=== PATIENT | male | born 1935 | race Caucasian/White ===

== ENCOUNTER 2016-06-06 12:35 | Emergency (ER) | payer OTHER ==
[~2016-06-06] VITALS: Ht 180.3 cm; Wt 100.7 kg
[2016-06-06 12:53] VITALS: BP 123/76
[2016-06-06 13:07] LABS: ABSOLUTE BASOPHIL COUNT 0 /CUMM (0.0-0.2); ABSOLUTE EOSINOPHIL COUNT 0.3 /CUMM (0.0-0.7); ABSOLUTE GRANULOCYTE CT 9.2 /CUMM (1.4-6.5); ABSOLUTE MONOCYTE COUNT 1.2 /CUMM (0.10-0.60); BASOPHIL % 0.3 % (0.0-2.0); GRANULOCYTE % 72.3 % (42.2-75.2); HEMATOCRIT 41.7 % (42-52); MEAN CORPUSCULAR HGB 31.3 PG (27.0-31.0); MEAN CORPUSCULAR HGB CONC 33.8 G/DL (33.0-37.0); MEAN CORPUSCULAR VOLUME 92.6 FL (80.0-94.0); MEAN PLATELET VOLUME 7.3 FL (7.4-10.4); PLATELET COUNT 357 /CUMM (130-400); RBC DISTRIBUTION WIDTH 14.4 % (11.5-14.5); WHITE BLOOD CELL COUNT 12.8 /CUMM (4.8-10.8)
--- NOTE | 2016-06-06 13:53 | RADIOLOGY REPORT ---
EXAMINATION: XR PORTABLE CHEST CLINICAL INFORMATION: Atrial fibrillation. COMPARISON: None TECHNIQUE: Portable AP view of the chest was obtained. FINDINGS: Cardiac leads overlie the chest. Low lung volumes. No dense consolidation, edema, or effusion. No pneumothorax. The cardiomediastinal silhouette is normal in size with a calcified aorta. Degenerative changes are seen at both shoulders. IMPRESSION: No acute pulmonary findings.
--- NOTE | 2016-06-06 14:00 | ED CARDIAC/CP/PALPITATIONS ---
History of Present Illness General Chief Complaint: General Adult Stated Complaint: SENT FOR AFIB NEW ONSET Source: patient Exam Limitations: no limitations Vital Signs & Intake/Output Vital Signs & Intake/Output Vital Signs Date Time Temp Pulse Resp B/P Pulse O2 O2 Flow FiO2 Ox Delivery Rate 06/06 1253 97.7 74 18 123/76 94 Room Air Allergies Coded Allergies: Penicillins (RASH 06/06/16) Sulfa (Sulfonamide Antibiotics) (RASH 06/06/16) Reconcile Medications Allopurinol 100 MG TABLET 1 TAB PO DAILY GOUT (Reported) Amlodipine Besylate 10 MG TABLET 1 TAB PO DAILY HEART (Reported) Atorvastatin Calcium 80 MG TABLET 0.5 TAB PO DAILY CHOLESTEROL (Reported) Clopidogrel Bisulfate (Clopidogrel) 75 MG TABLET 1 TAB PO DAILY ACS Furosemide 20 MG TABLET 1 TAB PO DAILY WATER RETENTION (Reported) Glimepiride 2 MG TABLET 1 TAB PO DAILY DM (Reported) Heparin (Heparin-1/2NS 25,000 Units/500) 25,000 UNIT/500 ML (50 UNIT/ML) IV.SOLN 25,000 UNITS IV Q24 ACS, AFIB Lisinopril 40 MG TABLET 1 TAB PO DAILY HEART (Reported) Metformin HCl 1,000 MG TABLET 1 TAB PO BID DM (Reported) Metoprolol Tartrate 25 MG TABLET 1 TAB PO BID HEART (Reported) Omeprazole 20 MG CAPSULE. 1 CAP PO DAILY GI (Reported) Triage Note: PT SENT IN BY PCP. PT STATES HE WENT TO SEE DR. SILVERMAN FOR C/O INDIGESTION AND STATES THEY DID AN EKG AND SENT HIM TO ED. PT NEW ONSET A-FIB CONTROLED RATE OF 77 IN TRIAGE. PT DENIES CHEST PAIN OR SOB. Triage Nurses Notes Reviewed? yes HPI: This patient is an 81-year-old male with a past medical history including hypertension and diabetes who presented to the emergency department today accompanied by his sent in by his primary care physician for evaluation of atrial fibrillation. This patient has no prior diagnosis of atrial fibrillation. The patient reported that over the last week he has been feeling bloated. He reported that he has been, "burping a lot." He also reported that sometimes when he burps a lot he feels a tightness in his upper abdomen. The patient denied any chest pain or difficulty breathing. He did report some swelling in his lower extremities. He is on a water pill, but has no diagnosis of CHF. He reported that once a year his primary care physician makes him go see a [id number] programmer, but he cannot remember the name of the [id number] programmer. The patient denied any headache, visual changes, jaw pain, arm pain, numbness or tingling in his extremities, abdominal pain, nausea, or vomiting. (GLENN TYSON PA-C) Past History Travel History Traveled to [place] past 21 day No Medical History Any Pertinent Medical History? see below for history Cardiovascular: hypertension Endocrine: diabetes Surgical History Surgical History: CAROTID ENDARTERECTOMY Psychosocial History What is your primary language Hebrew Tobacco Use: Quit >30 days ago ETOH Use: denies use Illicit Drug Use: denies illicit drug use Family History Hx Contributory? No (GLENN TYSON PA-C) Review of Systems Review of Systems Constitutional: Reports: no symptoms. EENTM: Reports: no symptoms. Respiratory: Reports: no symptoms. Cardiovascular: Reports: no symptoms. GI: Reports: see HPI. Genitourinary: Reports: no symptoms. Musculoskeletal: Reports: no symptoms. Skin: Reports: no symptoms. Neurological/Psychological: Reports: no symptoms. All Other Systems: Reviewed and Negative (GLENN TYSON PA-C) Physical Exam Physical Exam Cardiovascular: IRREGULARLY IRREGULAR WITH NO MURMURS, RUBS, OR GALLOPS. nO jvd. nO CAROTID BRUITS Comments: Well-developed well-nourished person in no acute distress HEENT: Normal EENT exam, head normocephalic, moist mucous membranes PERRLA bilaterally Neck: Supple, no lymphadenopathy Back: Normal inspection Respiratory: No respiratory distress. Chest nontender. Speaking in full sentences. Lungs clear to auscultation bilaterally with no wheezes, rales, rhonchi Abdomen: Soft with mild distention. Nonrigid. Tympanic to percussion. Hypoactive bowel sounds. No organomegaly. Nontender to palpation. No peritoneal signs. No rebound or guarding Extremity: Normal and equal pulses. Neuro: Alert oriented x3, cranial nerves II through XII grossly intact. Skin: No appreciable rash on exposed skin, skin is warm and dry. Psych: Mood and affect is normal Core Measures ACS in differential dx? Yes Severe Sepsis Present: No Septic Shock Present: No (GLENN TYSON PA-C) Progress Differential Diagnosis: AMI, aortic dissection, atrial fibrillation, cholecystitis, CHF/pulm edema, costochondritis, hyperthyroid, musculoskeletal pain, myocarditis, pancreatitis, pericarditis, pneumonia, pneumothorax, PSVT, pulmonary embolism, PVCs/PACs, unstable angina, SMALL BOWEL OBSTRUCTION Plan of Care: Orders Procedure Date/time Status ECHOCARDIOGRAM 06/06 1445 Active Add-on Test (ER Only) 06/06 1411 Active Add-on Test (ER Only) 06/06 1336 Active TYPE & SCREEN (NOT X-MATCH) 06/06 1336 Active LIPASE 06/06 1256 Complete DIRECT BILIRUBIN 06/06 1256 Complete AMYLASE 06/06 1256 Complete TROPONIN LEVEL 06/06 1254 Complete MAGNESIUM 06/06 1254 Complete COMPREHENSIVE METABOLIC PANEL 06/06 1254 Complete CHOLESTEROL 06/06 1254 Complete CBC WITHOUT DIFFERENTIAL 06/06 1254 Complete PARTIAL THROMBOPLASTIN TIME 06/06 1250 Complete PROTHROMBIN TIME 06/06 1250 Complete EKG 06/06 1242 Active Laboratory Tests 06/06/16 1336: PT Cancelled, INR Cancelled, APTT Cancelled 06/06/16 1256: Anion Gap 15, Estimated GFR > 60, BUN/Creatinine Ratio 10.0, Glucose 236 H, Calcium 10.8 H, Magnesium 1.5 L, Total Bilirubin 0.8, Direct Bilirubin 0.3, AST 42, ALT 55, Alkaline Phosphatase 79, Troponin I 3.05 *H, Total Protein 6.5, Albumin 3.9, Globulin 2.6, Albumin/Globulin Ratio 1.5, Cholesterol 105, Amylase 34, Lipase 142, CBC w Diff NO MAN DIFF REQ, RBC 4.50 L, MCV 92.6, MCH 31.3 H, RDW 14.4, MPV 7.3 L, Gran % 72.3, Lymphocytes % 16.0 L, Monocytes % 9.4 H, Eosinophils % 2.0, Basophils % 0.3, Absolute Granulocytes 9.2 H, Absolute Lymphocytes 2.0, Absolute Monocytes 1.2 H, Absolute Eosinophils 0.3, Absolute Basophils 0, PUBS MCHC 33.8 06/06/16 1250: PT 12.0, INR 1.14, APTT 30 Diagnostic Imaging: Viewed by Me: Radiology Read. Discussed w/RAD: Radiology Read. Radiology Impression: PATIENT: TRENA WHIPPLE PRESENT AGE: 81 PATIENT ACCOUNT NO: [id number] : 36 LOCATION: [facility] ORDERING PHYSICIAN: GLENN TYSON PA-C SERVICE DATE: 06/06/16-1253 EXAM TYPE: RAD - XRY-PORTABLE CHEST XRAY EXAMINATION: XR PORTABLE CHEST CLINICAL INFORMATION: Atrial fibrillation. COMPARISON: None TECHNIQUE: Portable AP view of the chest was obtained. FINDINGS: Cardiac leads overlie the chest. Low lung volumes. No dense consolidation, edema, or effusion. No pneumothorax. The cardiomediastinal silhouette is normal in size with a calcified aorta. Degenerative changes are seen at both shoulders. IMPRESSION: No acute pulmonary findings. DICTATED BY: LELA WINN MD DATE/TIME DICTATED:06/06/161347 CARTON WRAPPER:JENNIFER DATE/TIME TRANSCRIBED:06/06/161347 CONFIDENTIAL, DO NOT COPY WITHOUT APPROPRIATE AUTHORIZATION. <Electronically signed in Other Vendor System> SIGNED BY: PA PORTER,LELA 06/06/16 8190 Initial ED EKG: AFIB, ST depression, 84 BPM, st DEPRESSIONS IN LEADS v2, V3, V4, V5, V6 Comments: 06/06/2016 2:06:50 PM: I spoke to the on-call as400 programmer, Dr. Ojeda. Discussed with him this patient's elevated troponin of 3.05 and new onset atrial fibrillation diagnosed today. He will be at the patient's bedside to evaluate this patient. Dr. DE JESUS was also at the patient's bedside from a space evaluation. The patient is stating that he does not want to stay here in the emergency department. He stated, "I will come back tomorrow, but I am not staying here." 06/06/2016 2:29:23 PM: Dr. Ojeda is currently at the patient's bedside for [id number] evaluation 06/06/2016 4:06:44 PM: Dr. Ojeda ordered a stat echocardiogram. The patient agreed to stay for the echocardiogram. However, after this was finished, the patient's caught him in the wheelchair and was feeling him out of the emergency department. I tried to explain to them the importance of staying in the emergency department for further workup and admission as he has a positive troponin and new onset atrial fibrillation. The patient is adamantly refusing to stay. I counseled the patient extensively on the risks of leaving in his condition. He reported that he understands and stated, "I will be back tomorrow , but I am not staying here tonight." (GLENN TYSON PA-C) Departure Departure Disposition: STILL A PATIENT Condition: Stable Clinical Impression Primary Impression: Elevated troponin Secondary Impressions: Atrial fibrillation, new onset Referrals: REENA PORTER,ALYSIA Ragsdale (PCP/Family) Departure Forms: Customer Survey General Discharge Information (GLENN TYSON PA-C) PA/INSTRUCTIONAL WRITER Co-Sign Statement Statement: ED Attending supervision documentation- x I saw and evaluated the patient. I have also reviewed all the pertinent lab results and diagnostic results. I agree with the findings and the plan of care as documented in the PA's/INSTRUCTIONAL WRITER's documentation. [] I have reviewed the ED Record and agree with the PA's/INSTRUCTIONAL WRITER's documentation. [] Additions or exceptions (if any) to the PAs/INSTRUCTIONAL WRITER's note and plan are summarized below: [] (LIZA PORTER,LI) Critical Care Note Critical Care Note Critical Care Time: 30-74 min (GLENN TYSON PA-C)
[2016-06-06 14:26] LABS: PTT 30 SEC (25-37)
--- NOTE | 2016-06-06 18:59 | ECHOCARDIOGRAM REPORT ---
TRENA WHIPPLE Age: 81 : 1935 Gender: M Exam Date: 06/06/2016 15:28 Exam Location: ER Ht (in): 71 Wt (lb): 222 BSA: 2.27 BP: / Ordering Physician: IVELISSE OJEDA MD Referring Physician: Ibeth OJEDA Technologist: Sierra Oquendo RDCS Room Number: ER#5 Indications: AFIB/FLUTTER Rhythm: Atrial fibrillation Technical Quality: Fair FINDINGS Left Ventricle Normal size left ventricle. Mild concentric left ventricular hypertrophy. Overall left ventricular systolic function is lower limits of normal at 50-60%. There is hypokinesis to akinesis of the distal septum and apex noted. Right Ventricle The right ventricle is normal in size and function. Right Atrium The right atrium is normal in size. Left Atrium Mild left atrial dilatation. Mitral Valve Mild thickening/calcification of the mitral valve leaflets. Mild mitral annular calcification. Mild mitral regurgitation. Aortic Valve Diffuse thickening (sclerosis) of the aortic valve cusps without reduced excursion. . No aortic stenosis. Mild aortic regurgitation. Tricuspid Valve The tricuspid valve is normal in structure and function. There is trace to mild tricuspid regurgitation. Pulmonary artery systolic pressure is normal. Pulmonic Valve Structurally normal pulmonic valve. There is no pulmonic regurgitation. Pericardium Normal pericardium without effusion. No pleural effusion. Great Vessels The aortic root is upper limits of normal in diameter and 3.6 cm. The ascending aorta is 3.3 cm in diameter. CONCLUSIONS Mild concentric left ventricular hypertrophy. Overall left ventricular systolic function is lower limits of normal at 50-60%. There is hypokinesis to akinesis of the distal septum and apex noted. Mild left atrial dilatation. Mild thickening/calcification of the mitral valve leaflets. Mild mitral annular calcification. Mild mitral regurgitation. Diffuse thickening (sclerosis) of the aortic valve cusps without reduced excursion. No aortic stenosis. Mild aortic regurgitation. Pulmonary artery systolic pressure is normal. Ivelisse Ojeda M.D. (Electronically Signed) Final Date: 06 June 2016 18:59 MEASUREMENTS (Male / Female) Normal Values 2D ECHO LV Diastolic Diameter PLAX 4.3 cm 4.2 - 5.9 / 3.9 - 5.3 cm LV Systolic Diameter PLAX 2.6 cm 2.1 - 4.0 cm LV Fractional Shortening PLAX 39.5 % 25 - 46 % LV Ejection Fraction 2D Teich 70.4 % IVS Diastolic Thickness 1.2 cm LVPW Diastolic Thickness 1.2 cm LV Relative Wall Thickness 0.6 RV Internal Dim ED PLAX 3.6 cm 1.9 - 3.8 cm LVOT Diameter 1.9 cm Aortic Root Diameter 3.6 cm LA Systolic Diameter LX 3.6 cm 3.0 - 4.0 / 2.7 - 3.8 cm LA Volume 67.0 cm 18 - 58 / 22 - 52 cm Ascending Aorta Diameter 3.3 cm DOPPLER AV Peak Velocity 127.0 cm/s AV Peak Gradient 6.5 mmHg AV Mean Velocity 80.0 cm/s AV Mean Gradient 3.0 mmHg AV Velocity Time Integral 26.2 cm LVOT Peak Velocity 98.5 cm/s LVOT Peak Gradient 3.9 mmHg LVOT Mean Velocity 63.3 cm/s LVOT Mean Gradient 2.0 mmHg LVOT Velocity Time Integral 16.7 cm LVOT Stroke Volume 47.3 cm AV Area Cont Eq vti 1.8 cm AV Area Cont Eq pk 2.2 cm MV Peak Velocity 71.5 cm/s MV Peak Gradient 2.0 mmHg MV Mean Velocity 51.5 cm/s MV Mean Gradient 1.0 mmHg Mitral E Point Velocity 80.5 cm/s Mitral A Point Velocity 70.8 cm/s Mitral E to A Ratio 1.1 MV PHT Velocity 72.1 cm/s MV Deceleration [place] 166.0 cm/s MV Pressure Half Time 130.3 ms MV Area PHT 1.7 cm MV Deceleration Time 114.0 ms TR Peak Velocity 253.0 cm/s TR Peak Gradient 25.6 mmHg Right Atrial Pressure 5.0 mmHg Pulmonary Artery Systolic Pressu 30.6 mmHg Right Ventricular Systolic Press 30.6 mmHg PV Peak Velocity 93.0 cm/s PV Peak Gradient 3.5 mmHg PV Mean Velocity 64.9 cm/s PV Mean Gradient 2.0 mmHg PV Velocity Time Integral 16.0 cm LV E' Lateral Velocity 8.1 cm/s Mitral E to LV E' Lateral Ratio 10.0 LV E' Septal Velocity 7.9 cm/s Mitral E to LV E' Septal Ratio 10.2
--- NOTE | 2016-06-06 19:14 | Cons- Cardiology ---
General Information and HPI Consulting Request Date of Consult: 06/06/16 Requested By: SHELIA Meyer Reason for Consult: New-onset atrial fibrillation and positive troponin. Source of Information: patient, old records Exam Limitations: no limitations History of Present Illness: The patient is an 81-year-old male with underlying hypertension and diabetes. He was seen by Dr. Cristina for a routine office visit today, who found him to be in atrial fibrillation and sent him to the emergency department. The patient was not aware of this. He did not have any palpitations or feelings of irregular pulse. However the patient states that over the past week he has had a distended abdomen and has a lot of eructation. He has had some discomfort in his epigastric area but denies any chest pain or shortness of breath. In the emergency room he was found to be in atrial fibrillation with a normal heart rate with a lot of ST depression on his electrocardiogram. His initial troponin was reported as 3.05 and the patient was advised admission. However the patient consistently refused admission. He did agree to have an echocardiogram, which did show some regional wall motion abnormalities, but directly after the echocardiogram was completed he left AMA from the emergency department. He did say he would "come back tomorrow". Allergies/Medications Allergies: Coded Allergies: Penicillins (RASH 06/06/16) Sulfa (Sulfonamide Antibiotics) (RASH 06/06/16) Home Med List: Allopurinol 100 MG TABLET 1 TAB PO DAILY GOUT (Reported) Amlodipine Besylate 10 MG TABLET 1 TAB PO DAILY HEART (Reported) Atorvastatin Calcium 80 MG TABLET 0.5 TAB PO DAILY CHOLESTEROL (Reported) Clopidogrel Bisulfate (Clopidogrel) 75 MG TABLET 1 TAB PO DAILY ACS Furosemide 20 MG TABLET 1 TAB PO DAILY WATER RETENTION (Reported) Glimepiride 2 MG TABLET 1 TAB PO DAILY DM (Reported) Heparin (Heparin-1/2NS 25,000 Units/500) 25,000 UNIT/500 ML (50 UNIT/ML) IV.SOLN 25,000 UNITS IV Q24 ACS, AFIB Lisinopril 40 MG TABLET 1 TAB PO DAILY HEART (Reported) Metformin HCl 1,000 MG TABLET 1 TAB PO BID DM (Reported) Metoprolol Tartrate 25 MG TABLET 1 TAB PO BID HEART (Reported) Omeprazole 20 MG CAPSULE. 1 CAP PO DAILY GI (Reported) Review of Systems Review of Systems: He has no other complaints in the review of systems at this time. Past History Travel History Traveled to [place] past 21 day No Medical History Cardiovascular: hypertension Endocrine: diabetes Surgical History Surgical History: CAROTID ENDARTERECTOMY Psychosocial History ETOH Use: denies use Illicit Drug Use: denies illicit drug use Exam & Diagnostic Data Vital Signs and I&O Vital Signs Date Time Temp Pulse Resp B/P Pulse O2 O2 Flow FiO2 Ox Delivery Rate 06/06 1253 97.7 74 18 123/76 94 Room Air Intake & Output 06/06 1600 06/06 0800 06/06 0000 06/05 1600 06/05 0800 06/05 0000 Intake Total Output Total Balance Patient 222 lb Weight Physical Exam: On physical he is an overweight elderly man in no acute distress HEENT exam is normal Chest is clear Heart reveals irregular rhythm and no murmurs. The rate is within the normal range. The abdomen is benign Extremities reveal trace edema and good pulses Labs/Darrius Results: Laboratory Tests 06/06 06/06 06/06 1336 1256 1250 Chemistry Sodium (137 - 145 mmol/L) 135 L Potassium (3.5 - 5.1 mmol/L) 4.5 Chloride (98 - 107 mmol/L) 97 L Carbon Dioxide (22 - 30 mmol/L) 23 Anion Gap (5 - 16) 15 BUN (9 - 20 mg/dL) 10 Creatinine (0.7 - 1.2 mg/dL) 1.0 Estimated GFR (>60 ml/min) > 60 BUN/Creatinine Ratio (7 - 25 %) 10.0 Glucose (65 - 99 mg/dL) 236 H Calcium (8.4 - 10.2 mg/dL) 10.8 H Magnesium (1.6 - 2.3 mg/dL) 1.5 L Total Bilirubin (0.2 - 1.3 mg/dL) 0.8 Direct Bilirubin (< 0.4 mg/dL) 0.3 AST (17 - 59 U/L) 42 ALT (21 - 72 U/L) 55 Alkaline Phosphatase (< 127 U/L) 79 Troponin I (<0.11 ng/ml) 3.05 *H Total Protein (6.3 - 8.2 g/dL) 6.5 Albumin (3.5 - 5.0 g/dL) 3.9 Globulin (1.9 - 4.2 gm/dL) 2.6 Albumin/Globulin Ratio (1.1 - 2.2 %) 1.5 Cholesterol (< 200 MG/DL) 105 Amylase (30 - 110 U/L) 34 Lipase (23 - 300 U/L) 142 Coagulation PT (9.4 - 12.5 SEC) Cancelled 12.0 INR (0.90 - 1.17) Cancelled 1.14 APTT (25 - 37 SEC) Cancelled 30 Hematology CBC w Diff NO MAN DIFF REQ WBC (4.8 - 10.8 /CUMM) 12.8 H RBC (4.70 - 6.10 /CUMM) 4.50 L Hgb (14.0 - 18.0 G/DL) 14.1 Hct (42 - 52 %) 41.7 L MCV (80.0 - 94.0 FL) 92.6 MCH (27.0 - 31.0 PG) 31.3 H RDW (11.5 - 14.5 %) 14.4 Plt Count (130 - 400 /CUMM) 357 MPV (7.4 - 10.4 FL) 7.3 L Gran % (42.2 - 75.2 %) 72.3 Lymphocytes % (20.5 - 51.1 %) 16.0 L Monocytes % (1.7 - 9.3 %) 9.4 H Eosinophils % (0 - 5 %) 2.0 Basophils % (0.0 - 2.0 %) 0.3 Absolute Granulocytes (1.4 - 6.5 /CUMM) 9.2 H Absolute Lymphocytes (1.2 - 3.4 /CUMM) 2.0 Absolute Monocytes (0.10 - 0.60 /CUMM) 1.2 H Absolute Eosinophils (0.0 - 0.7 /CUMM) 0.3 Absolute Basophils (0.0 - 0.2 /CUMM) 0 PUBS MCHC (33.0 - 37.0 G/DL) 33.8 Diagnostic Data EKG Results EKG on presentation showed atrial fibrillation rate of 84. There is a PVC seen. 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 There are diffuse ST depressions in the anterolateral leads. A previous EKG from the doctor's office from a year prior showed sinus rhythm. CXR Results PATIENT: TRENA WHIPPLE PRESENT AGE: 81 PATIENT ACCOUNT NO: [id number] : 36 LOCATION: [facility] ORDERING PHYSICIAN: GLENN TYSON PA-C SERVICE DATE: 06/06/16-9316 EXAM TYPE: RAD - XRY-PORTABLE CHEST XRAY EXAMINATION: XR PORTABLE CHEST CLINICAL INFORMATION: Atrial fibrillation. COMPARISON: None TECHNIQUE: Portable AP view of the chest was obtained. FINDINGS: Cardiac leads overlie the chest. Low lung volumes. No dense consolidation, edema, or effusion. No pneumothorax. The cardiomediastinal silhouette is normal in size with a calcified aorta. Degenerative changes are seen at both shoulders. IMPRESSION: No acute pulmonary findings. DICTATED BY: LELA WINN MD DATE/TIME DICTATED:06/06/161347 DIRECTOR OF AVIATION:JENNIFER DATE/TIME TRANSCRIBED:06/06/161347 CONFIDENTIAL, DO NOT COPY WITHOUT APPROPRIATE AUTHORIZATION. <Electronically signed in Other Vendor System> SIGNED BY: PA PORTER,LELA 06/06 7532 Other Results CONCLUSIONS Mild concentric left ventricular hypertrophy. Overall left ventricular systolic function is lower limits of normal at 50-60%. There is hypokinesis to akinesis of the distal septum and apex noted. Mild left atrial dilatation. Mild thickening/calcification of the mitral valve leaflets. Mild mitral annular calcification. Mild mitral regurgitation. Diffuse thickening (sclerosis) of the aortic valve cusps without reduced excursion. No aortic stenosis. Mild aortic regurgitation. Pulmonary artery systolic pressure is normal. Luis Ojeda M.D. (Electronically Signed) Final Date: 06 June 2016 18:59 Assessment/Plan Assessment/Plan This patient presented with an abnormal EKG, elevated troponin, and "new onset" atrial fibrillation. He has some atypical symptoms which could be cardiac in nature consisting of eructation and epigastric discomfort. The symptoms are at least a few days old. He has a abnormal echocardiogram with some wall motion abnormalities suggesting that perhaps he had a myocardial infarction a few days ago by symptoms. The onset of atrial fibrillation however is unknown because he is asymptomatic from this. This patient was urged to stay in the hospital to receive anti-ischemic therapy and anticoagulation for his atrial fibrillation and myocardial infarction. However he adamantly refused to stay in the hospital , although he did say he would possibly come back to the emergency room tomorrow. Multiple efforts were made to convince him to stay but he was competent and signed out AMA. He was urged to either to come back here tomorrow or to follow-up with his own physician. Copies To: REENA PORTER,ALYSIA Ragsdale Consult Acknowledgment - Thank you for your consult request.
[2016-06-07] MEDS ORDERED: ALLOPURINOL100 M1 PO (08:25)
[2016-06-07] MEDS ORDERED: OMEPRAZOLE20 M2 PO (08:25)
[2016-06-07] MEDS ORDERED: METFORMIN HCL1000 M1 PO (08:26)
[2016-06-07] MEDS ORDERED: AMLODIPINE BESY10 M1 PO (08:26)
[2016-06-07] MEDS ORDERED: FUROSEMIDE20 M1 PO (08:28)
[2016-06-07] MEDS ORDERED: ATORVASTATIN CA80 M1 PO (08:28)
[2016-06-07] MEDS ORDERED: GLIMEPIRIDE2 MG PO (08:28)
[2016-06-07] MEDS ORDERED: LISINOPRIL40 M1 PO (08:28)
[2016-06-07] MEDS ORDERED: METOPROLOL TART25 M1 PO (08:29)
[2016-06-07] MEDS ORDERED: CLOPIDOGREL75 M1 PO (13:48)
[2016-06-07] MEDS ORDERED: HEPARIN-1/25000 UNI1 IV (13:52)
== END 2016-06-06 16:13 | disposition left against medical advice (07) ==
LOC: ERH 12:35 → EDBD 12:35 → ERH 12:47
PROVIDERS: Emergency Medicine; Physician Assistant
DX: I48.91 Unspecified atrial fibrillation (principal); R77.8 Other specified abnormalities of plasma proteins
CPT/HCPCS: 93005; 93010; 93306

== ENCOUNTER 2016-06-07 03:56 | Inpatient (IN) | payer OTHER ==
[~2016-06-07] VITALS: Ht 210.8 cm; Wt 100.7 kg
--- NOTE | 2016-06-07 04:05 | NUR ---
PT TO ED C/O FREQUENT BELCHING, ABDOMINAL "BLOATING" AND CHEST PRESSURE FOR AN HOUR. SEEN FOR THE SAME YESTERDAY AFTERNOON AND LEFT AMA, PER SIGNIFICANT OTHER. PT DENIES PAIN ON ARRIVAL TO ED. "WHEN THE PRESUURE IN MY CHEST CAME BACK, I GOT SCARED"
--- NOTE | 2016-06-07 04:15 | NUR ---
PT PLACEWD ON 2L NC, O2 SAT TO 97% PT EVALUATED BY DR BISHOP.
[2016-06-07 05:07] LABS: ABSOLUTE BASOPHIL COUNT 0.1 /CUMM (0.0-0.2); ABSOLUTE EOSINOPHIL COUNT 0.2 /CUMM (0.0-0.7); ABSOLUTE GRANULOCYTE CT 8.4 /CUMM (1.4-6.5); ABSOLUTE LYMPH COUNT 1.3 /CUMM (1.2-3.4); BASOPHIL % 0.5 % (0.0-2.0); EOSINOPHIL % 2.1 % (0-5); GRANULOCYTE % 76.7 % (42.2-75.2); HEMATOCRIT 42.1 % (42-52); MEAN CORPUSCULAR VOLUME 93.8 FL (80.0-94.0); MEAN PLATELET VOLUME 7.9 FL (7.4-10.4); PLATELET COUNT 312 /CUMM (130-400); RBC DISTRIBUTION WIDTH 14.3 % (11.5-14.5); RED BLOOD CELL CT 4.49 /CUMM (4.70-6.10)
--- NOTE | 2016-06-07 05:38 | ED CARDIAC/CP/PALPITATIONS ---
History of Present Illness General Chief Complaint: Chest Pain Stated Complaint: CHEST PAIN Source: patient, old records Exam Limitations: no limitations Vital Signs & Intake/Output Vital Signs & Intake/Output Vital Signs Date Time Temp Pulse Resp B/P B/P Pulse O2 O2 Flow FiO2 Mean Ox Delivery Rate 06/07 0603 97.5 83 18 126/65 95 Nasal 2.0L Cannula 06/07 0415 97 Nasal 2.0L Cannula 06/07 0406 97.2 88 18 123/81 94 Room Air Allergies Coded Allergies: Penicillins (RASH 06/06/16) Sulfa (Sulfonamide Antibiotics) (RASH 06/06/16) Triage Nurses Notes Reviewed? yes HPI: PATIENT PRESENTS FOR EVALUATION OF A LEFT CHEST PRESSURE WITH ASSOCIATED ABDOMINAL DISTENTION AND BELCHING. Patient WAS SEEN EARLIER TODAY IN THE EMERGENCY DEPARTMENT AND WAS TOLD HE SHOULD BE ADMITTED BUT HE REFUSED. He HAD LAB TESTS X-RAY AND ULTRASOUND. Patient STATES THAT WHEN HE GOT BACK HOME HE EXPERIENCED ADDITIONAL LEFT CHEST PRESSURE PROMPTING THEM TO RETURN TO THE EMERGENCY DEPARTMENT. He DENIES CHEST PAIN AT THIS TIME. In FACT HE HAS NO SPECIFIC COMPLAINTS CURRENTLY. Past History Medical History Any Pertinent Medical History? see below for history Cardiovascular: hypertension Endocrine: diabetes Surgical History Surgical History: CAROTID ENDARTERECTOMY Psychosocial History What is your primary language Portuguese Family History Hx Contributory? No Review of Systems Review of Systems Constitutional: Reports: no symptoms. EENTM: Reports: no symptoms. Respiratory: Reports: no symptoms. Cardiovascular: Reports: see HPI. GI: Reports: no symptoms. Genitourinary: Reports: no symptoms. Musculoskeletal: Reports: no symptoms. Skin: Reports: no symptoms. Neurological/Psychological: Reports: no symptoms. Hematologic/Endocrine: Reports: no symptoms. Immunologic/Allergic: Reports: no symptoms. All Other Systems: Reviewed and Negative Physical Exam Physical Exam Cardiovascular: SEE BELOW Comments: Gen.: Well-nourished, well-developed, no acute respiratory distress. Head: Normocephalic, atraumatic. Eyes: Normal inspection bilaterally Ears: Normal inspection bilaterally Nose: Normal inspection Throat/mouth : Moist mucosa Neck: Supple, full range of motion, no goiter Heart: Regular rate and rhythm, no murmurs rubs or gallops Lungs: Clear to auscultation bilaterally with normal air entry Chest: Nontender Back: Normal range of motion Abdomen: Soft, nontender, nondistended, normal bowel sounds Extremities: Normal range of motion grossly, equal radial pulses, no cyanosis clubbing or edema, CALVES NONTENDER Neurologic: Cranial nerves grossly intact, speech is clear Skin: warm and dry Psychiatric: Calm, cooperative, no apparent delusions or hallucinations Core Measures ACS in differential dx? Yes Severe Sepsis Present: No Septic Shock Present: No Progress Differential Diagnosis: AMI, unstable angina Plan of Care: Orders Procedure Date/time Status Admit to inpatient 06/07 625 Active TROPONIN LEVEL 06/08 439 Complete MAGNESIUM 06/08 439 Complete CBC WITHOUT DIFFERENTIAL 06/08 439 Complete BASIC METABOLIC PANEL 06/08 439 Complete EKG 06/07 356 Active Current Medications Sig/Shantal Start time Last Medication Dose Stop Time Status Admin Aspirin 81 MG ONCE ONE 06/07 644 UNVr (Aspirin) 06/07 645 Metoprolol Tartrate 12.5 MG ONCE ONE 06/07 644 UNVr (Lopressor) 06/07 645 Laboratory Tests 06/07/16 0524: Anion Gap 12, Estimated GFR > 60, BUN/Creatinine Ratio 13.0, Glucose 161 H, Calcium 10.0, Magnesium 1.5 L, Troponin I 1.46 *H 06/07/16439: CBC w Diff NO MAN DIFF REQ, RBC 4.49 L, MCV 93.8, MCH 31.0, RDW 14.3, MPV 7.9, Gran % 76.7 H, Lymphocytes % 11.8 L, Monocytes % 8.9, Eosinophils % 2.1, Basophils % 0.5, Absolute Granulocytes 8.4 H, Absolute Lymphocytes 1.3, Absolute Monocytes 1.0 H, Absolute Eosinophils 0.2, Absolute Basophils 0.1, PUBS MCHC 33.0 Initial ED EKG: NSR, rate (90), pvc Prior EKG: changed (a fib on prior) Rhythm Strip: normal sinus rhythm Departure Departure Disposition: STILL A PATIENT Condition: Stable Clinical Impression Primary Impression: Elevated troponin Secondary Impressions: Paroxysmal atrial fibrillation Referrals: ALYSIA VALLES MD (PCP/Family) Departure Forms: Customer Survey General Discharge Information Admission Note Spoke With: ALYSIA VALLES MD Documentation of Exam: Documentation of any treatments & extenuating circumstances including Concerns Regarding Discharge (functional status, medication knowledge or non-compliance, living conditions, etc.) that warrant an admission rather than observation: Patient has an elevated troponin and evidence of paroxysmal atrial fibrillation based on his prior EKG and emergency department visit. It is likely He has suffered a small myocardial infarction. This places him at risk of further dysrhythmias and cardiac arrest. He signed out AGAINST MEDICAL ADVICE during his last emergency department visit and I feel this makes him a poor candidate for outpatient management as it is not clear if he would comply with outpatient treatment. I feel he now requires hospitalization for continuous cardiac monitoring, serial troponin determinations, serial EKGs and cardiology consultation. This patient's medications should be optimized and stress test and/or cardiac catheterization should be considered. I feel he will require a multiple day hospitalization. Critical Care Note Critical Care Note Critical Care Time: non-applicable
--- NOTE | 2016-06-07 06:02 | NUR ---
PT BELCHING FREQUENTLY. REMAINS PAIN FREE
--- NOTE | 2016-06-07 06:26 | NUR ---
CRITICAL TEST RESULTS [id number] TRENA WHIPPLE 81 M TESTS AND RESULTS: TROP 1.46 Results received and read back by: SARAY NORMAN Results received date and time: 06/07/16 0627 The following provider was notified of the results, and read the results back: DR BISHOP Notified date and time: 06/07/16 at 0605
--- NOTE | 2016-06-07 06:58 | NUR ---
PT MEDICATED WITH ASPIRIN 81MG PO AND LOPRESSOR 12.5MG PO PER EMAR.
--- NOTE | 2016-06-07 07:37 | History & Physical ---
MAGO LIANG 06/07/16 0736: General Information and HPI MD Statement: I have seen and personally examined TRENA WHIPPLE and documented this H&P. The patient is a 81 year old M who presented with a patient stated chief complaint of [Chest pain]. Source of Information: patient, old records Exam Limitations: no limitations History of Present Illness: is an 81 yo man with PMHx. significant for HTN, DM, HLD, OA, Rt. Carotid endarterctomy about 10 years ago presented to ED with a c/o of chest pain. Patient was at our ED yesterday for the same complaint, he was seen by his PCP yesterday, EKG at PCP office showed st-depression and he was advised to come to ED for more evaluation, he states that his chest pain started last week, worst was at last sunday, pressure in nature, mainly on the left side of the chest last for about 20 minutes, no radiation, no nausea, vomiting, diaphoresis, dizziness, heart racing and there is no change in urinary or bowel habits. He report that his symptoms started as indigestion, he was berbing alot, his states that they tries multiple meds, for gas including tums but his symptoms didn't resolved. Yesterday at our ED, his troponin was: 3.05, EKG showed st-t wave changes, echocardiogram was done yesterday which showed wall motion abnormality, he was seen by , the plan was to admitt him and treat him for ACS and new onset A.fib BUT he refused to stay and left AMA. Unfortunately he again started to have the chest prssure at 2:30 am and he decided to come back to our ED for more evaluation. Allergies/Medications Allergies: Coded Allergies: Penicillins (RASH 06/06/16) Sulfa (Sulfonamide Antibiotics) (RASH 06/06/16) Home Med list Allopurinol 100 MG TABLET 1 TAB PO DAILY GOUT (Reported) Amlodipine Besylate 10 MG TABLET 1 TAB PO DAILY HEART (Reported) Atorvastatin Calcium 80 MG TABLET 0.5 TAB PO DAILY CHOLESTEROL (Reported) Furosemide 20 MG TABLET 1 TAB PO DAILY WATER RETENTION (Reported) Glimepiride 2 MG TABLET 1 TAB PO DAILY DM (Reported) Lisinopril 40 MG TABLET 1 TAB PO DAILY HEART (Reported) Metformin HCl 1,000 MG TABLET 1 TAB PO BID DM (Reported) Metoprolol Tartrate 25 MG TABLET 1 TAB PO BID HEART (Reported) Omeprazole 20 MG CAPSULE. 1 CAP PO DAILY GI (Reported) Past History Travel History Traveled to [place] past 21 day No Medical History Neurological: TIA Cardiovascular: hypertension, PVC'S Gastrointestinal: GERD Musculoskeletal: osteoarthritis Endocrine: diabetes Surgical History Surgical History: CAROTID ENDARTERECTOMY Past Family/Social History Family History Relations & Conditions if any MOTHER FH: cancer FATHER FH: heart attack Psychosocial History Smoking Status: Former Smoker (40 years ago) ETOH Use: denies use (stopped 6 years ago) Illicit Drug Use: denies illicit drug use Employment History Employment Retired Profession/Employer steal iron Review of Systems Review of Systems Constitutional: Reports: no symptoms. Cardiovascular: Reports: chest pain, peripheral edema. Denies: palpitations, syncope. Respiratory: Denies: cough, short of breath, sputum production. GI: Reports: bloating. Genitourinary: Reports: no symptoms. Musculoskeletal: Reports: no symptoms. Skin: Reports: no symptoms. Neurological/Psychological: Reports: no symptoms. Exam & Diagnostic Data Last 24 Hrs of Vital Signs/I&O Vital Signs Date Time Temp Pulse Resp B/P B/P Pulse O2 O2 Flow FiO2 Mean Ox Delivery Rate 06/07 0830 97.8 85 16 108/66 95 Nasal 2.0L Cannula 06/07 0657 83 18 111/67 06/07 0657 83 18 111/67 95 Nasal 2.0L Cannula 06/07 0603 97.5 83 18 126/65 95 Nasal 2.0L Cannula 06/07 0415 97 Nasal 2.0L Cannula 06/07 0406 97.2 88 18 123/81 94 Room Air Intake & Output 06/07 1600 06/07 0800 06/07 0000 Intake Total 0 Output Total Balance 0 Intake, Oral 0 Patient 222 lb Weight Weight Reported by Patient Measurement Method Physical Exam General Appearance Alert, Oriented X3, Cooperative, No Acute Distress Skin No Rashes, No Breakdown, No Significant Lesion HEENT Atraumatic, PERRLA, EOMI, Mucous Membr. moist/pink Neck Supple, No JVD Lymphatic Axillary nl, Cervical nl Cardiovascular Normal S1, Normal S2 Lungs Clear to Auscultation, Normal Air Movement Abdomen Normal Bowel Sounds, Soft, No Tenderness Extremities +2 edema Vascular Normal Pulses, Pulses Symmetrical Last 24 Hrs of Labs/Darrius: Laboratory Tests 06/07/16 0524: Anion Gap 12, Estimated GFR > 60, BUN/Creatinine Ratio 13.0, Glucose 161 H, Calcium 10.0, Magnesium 1.5 L, Troponin I 1.46 *H 06/07/16 0440: CBC w Diff NO MAN DIFF REQ, RBC 4.49 L, MCV 93.8, MCH 31.0, RDW 14.3, MPV 7.9, Gran % 76.7 H, Lymphocytes % 11.8 L, Monocytes % 8.9, Eosinophils % 2.1, Basophils % 0.5, Absolute Granulocytes 8.4 H, Absolute Lymphocytes 1.3, Absolute Monocytes 1.0 H, Absolute Eosinophils 0.2, Absolute Basophils 0.1, PUBS MCHC 33.0 Diagnostic Data EKG Results A.fib T-wave inversion at III, AFV ST -depression at anterolateral lead (V3....>V6) CXR Results IMPRESSION: No acute pulmonary findings. Other Results Echo at 06/06/2016: CONCLUSIONS Mild concentric left ventricular hypertrophy. Overall left ventricular systolic function is lower limits of normal at 50-60%. There is hypokinesis to akinesis of the distal septum and apex noted. Mild left atrial dilatation. Mild thickening/calcification of the mitral valve leaflets. Mild mitral annular calcification. Mild mitral regurgitation. Diffuse thickening (sclerosis) of the aortic valve cusps without reduced excursion. No aortic stenosis. Mild aortic regurgitation. Pulmonary artery systolic pressure is normal. Assessment/Plan Assessment: is an 81 yo man with PMHx. significant for HTN, DM, HLD, OA, Rt. Carotid endarterctomy about 10 years ago presented to ED with a c/o of chest pain found to have elevated troponin and EKG changes admitted for ACS. VITALS, EAMINATION AND LABS ABOVE Assessment and plan: #ACS: #New onset A.fib #Hx. of diabetes, HTN, HLD #Hx. of right carotid stenosis s/p enarterecotmy Plan: -Will admitt to telemetery flood -Case discussed with , will start IV heparin -B-jeff and dual antiplatelate started -Lipid panel at am -Will trend troponin and EKG -Cardiac catheterization in 1-2 days -Will hold oral hypoglycemic meds and start insulin sliding scale -Will continue other home meds -Will give one dose of nitroglycerin for vasodilator activity to decrease preload even his chest pain resolved. DVT PPX: HEPARIN FULL CODE As Ranked By This Provider Problem List: 1. Elevated troponin 2. Atrial fibrillation, new onset Core Measures/Miscellaneous Acute Coronary Syndrome ACS Diagnosis: Yes Cerebrovascular Accident CVA/TIA Diagnosis: No Congestive Heart Failure CHF Diagnosis: No Venous Thromboembolism VTE Risk Factors: Acute medical illness, Age > 40 No Mech VTE prophylaxis d/t: No contraindications No VTE Pharm Prophylaxis d/t: No contraindications VTE Diagnosis: No VTE Type: NONE VTE Confirmed by (Test): NONE Severe Sepsis Severe Sepsis Present: No Septic Shock Septic Shock Present: No Miscellaneous Documentation Attending Case Discussed With: REENA PORTER,ALYSIA Ragsdale Primary Care Physician: ALYSIA VALLES MD Patient sees these Specialists - Level of Patient Care: Telemetry MARIAMA IRVIN MD 06/07/16 0943: Attending Review Statement Attending Statement Attending MD Statement: examined this patient, discuss w/resident/PA/SELF PAY COLLECTOR, agreed w/resident/PA/SELF PAY COLLECTOR, discussed with family, reviewed EMR data (avail)
--- NOTE | 2016-06-07 07:42 | NUR ---
HOUSESTAFF IN FOR EVAL
[2016-06-07] MEDS ORDERED: ALLOPURINOL100 M1 PO (08:25)
[2016-06-07] MEDS ORDERED: OMEPRAZOLE20 M2 PO (08:25)
[2016-06-07] MEDS ORDERED: AMLODIPINE BESY10 M1 PO (08:26)
[2016-06-07] MEDS ORDERED: METFORMIN HCL1000 M1 PO (08:26)
[2016-06-07] MEDS ORDERED: LISINOPRIL40 M1 PO (08:28)
[2016-06-07] MEDS ORDERED: ATORVASTATIN CA80 M1 PO (08:28)
[2016-06-07] MEDS ORDERED: FUROSEMIDE20 M1 PO (08:28)
[2016-06-07] MEDS ORDERED: GLIMEPIRIDE2 MG PO (08:28)
[2016-06-07] MEDS ORDERED: METOPROLOL TART25 M1 PO (08:29)
--- NOTE | 2016-06-07 08:30 | NUR ---
AWAITING BED ASSIGNMENT ON . Informed waiting has been performed.
--- NOTE | 2016-06-07 09:00 | NUR ---
HEPARIN DRIP STARTED. PTT ORDERED FOR 1500.
--- NOTE | 2016-06-07 09:13 | NUR ---
PT GOING TO ROOM 181. REPORT TO SUKHJINDER PEREZ ON .
--- NOTE | 2016-06-07 09:13 | NUR ---
DR IRVIN AT BEDSIDE.
--- NOTE | 2016-06-07 09:24 | NUR ---
PT TO FLOOR VIA STRETCHER WITH THIS RN AND TRANSPORT ON MONITOR. ALL PAPERWORK AND BELONGINGS SENT. CLINICAL STATUS UNCHANGED.
--- NOTE | 2016-06-07 09:25 | NUR ---
PT ASSIGNED ROOM 181
--- NOTE | 2016-06-07 09:26 | Admission Certification ---
Admission Certification Certification Statement - As attending physician, I certify that at the time of - admission, based on clinical presentation, severity of - symptoms, need for further diagnostic testing and - therapeutic interventions, and risk of adverse outcomes - without in-hospital treatment, in my clinical assessment, - this patient requires an acute hospital stay for a minimum - of two nights or longer. I have also considered psychsocial - factors such as support system, advanced age, financial - issues, cognitive issues, and failed out-patient treatments, - past re-admission history, safety of patient, and lack of - compliance as applicable. Specific rationale supporting this admission is: NSTEMI
--- NOTE | 2016-06-07 09:44 | PN- Att Addend ---
Attending Addendum Attending Brief Note The patient reports left chest pain resolved General Appearance: Alert, No Acute Distress Skin: Grossly normal HEENT: PEERLA Neck: Supple, No JVD Cardiovascular: Irregular rhythm Lungs: Clear to Auscultation, Normal Air Movement Abdomen: Normal Bowel Sounds, Soft, No Tenderness Neurological: Normal Speech, Strength at 5/5 X4 Ext, Cranial Nerves 3-12 NL, Reflexes 2+ Extremities: Trace pedal edema Vascular: Normal Pulses Assessment 81-year-old with history of hypertension, diabetes, dyslipidemia, history of right carotid endarterectomy initially presented to my office with complaints of belching and indigestion. EKG demonstrative new onset atrial fibrillation and diffuse lateral septal T-wave inversions for which he was sent to the ER. However patient signed AGAINST MEDICAL ADVICE and last night he had additional chest pain for which she returned back to ER. He has similar EKG changes with positive troponins and new onset atrial fibrillation. He will be admitted for an NSTEMI currently on heparin drip and antiplatelets. Echocardiogram from yesterday shows mostly preserved ejection fraction with minimal wall motion abnormality. He will need cardiac cath at some point Plan Heparin drip Continue antiplatelets Beta blockers and statins Check hemoglobin A1c Continue to cycle troponins and EKGs Cardiology consult Continue other home medication Patient is full code Current Medications Sig/Shantal Start time Last Medication Dose Route Stop Time Status Admin Acetaminophen 650 MG Q6P PRN 06/07 0815 AC PO Allopurinol 100 MG DAILY 06/07 1000 AC PO Amlodipine Besylate 10 MG DAILY 06/07 1000 AC PO Aspirin 325 MG DAILY 06/08 1000 AC PO Aspirin 0 .STK-MED ONE 06/07 0654 DC PO Aspirin 81 MG ONCE ONE 06/07 0645 DC 06/07 PO 06/07 0646 0657 Atorvastatin Calcium 40 MG 1700 06/07 1700 AC PO Clopidogrel Bisulfate 75 MG DAILY 06/07 1000 AC PO Furosemide 20 MG DAILY 06/07 1000 AC PO Heparin Sodium 25,000 UNIT Q24H 06/07 0845 AC 06/07 (Porcine) IV 0855 Sodium Chloride 500 ML Lisinopril 40 MG DAILY 06/07 1000 AC PO Metoprolol Tartrate 12.5 MG BID 06/07 2200 CAN PO Metoprolol Tartrate 25 MG BID 06/07 2200 AC PO Metoprolol Tartrate 0 .STK-MED ONE 06/07 0654 DC PO Metoprolol Tartrate 12.5 MG ONCE ONE 06/07 0645 DC 06/07 PO 06/07 0646 0657 Multivitamins 1 TAB DAILY 06/07 1000 AC PO Nitroglycerin 0.4 MG ONCE ONE 06/07 0830 DC 06/07 SL 06/07 0831 0825 Omeprazole 20 MG DAILY AC 06/07 1000 AC PO Oxycodone/ 1 TAB Q6P PRN 06/07 0815 AC Acetaminophen PO Oxycodone/ 2 TAB Q6P PRN 06/07 0815 AC Acetaminophen PO Sodium Chloride 1,000 ML .[id number] 06/07 0815 AC 06/07 IV 0825 Laboratory Tests 06/07 06/07 06/07 0857 0524 0440 Chemistry Sodium (137 - 145 mmol/L) 133 L Potassium (3.5 - 5.1 mmol/L) 4.7 Chloride (98 - 107 mmol/L) 98 Carbon Dioxide (22 - 30 mmol/L) 23 Anion Gap (5 - 16) 12 BUN (9 - 20 mg/dL) 13 Creatinine (0.7 - 1.2 mg/dL) 1.0 Estimated GFR (>60 ml/min) > 60 BUN/Creatinine Ratio (7 - 25 %) 13.0 Glucose (65 - 99 mg/dL) 161 H Calcium (8.4 - 10.2 mg/dL) 10.0 Magnesium (1.6 - 2.3 mg/dL) 1.5 L Troponin I (<0.11 ng/ml) 1.46 *H Coagulation APTT Cancelled Hematology CBC w Diff NO MAN DIFF REQ WBC (4.8 - 10.8 /CUMM) 11.0 H RBC (4.70 - 6.10 /CUMM) 4.49 L Hgb (14.0 - 18.0 G/DL) 13.9 L Hct (42 - 52 %) 42.1 MCV (80.0 - 94.0 FL) 93.8 MCH (27.0 - 31.0 PG) 31.0 RDW (11.5 - 14.5 %) 14.3 Plt Count (130 - 400 /CUMM) 312 MPV (7.4 - 10.4 FL) 7.9 Gran % (42.2 - 75.2 %) 76.7 H Lymphocytes % (20.5 - 51.1 %) 11.8 L Monocytes % (1.7 - 9.3 %) 8.9 Eosinophils % (0 - 5 %) 2.1 Basophils % (0.0 - 2.0 %) 0.5 Absolute Granulocytes (1.4 - 6.5 /CUMM) 8.4 H Absolute Lymphocytes (1.2 - 3.4 /CUMM) 1.3 Absolute Monocytes (0.10 - 0.60 /CUMM) 1.0 H Absolute Eosinophils (0.0 - 0.7 /CUMM) 0.2 Absolute Basophils (0.0 - 0.2 /CUMM) 0.1 PUBS MCHC (33.0 - 37.0 G/DL) 33.0 Vital Signs Date Time Temp Pulse Resp B/P B/P Pulse O2 O2 Flow FiO2 Mean Ox Delivery Rate 06/07 0830 97.8 85 16 108/66 95 Nasal 2.0L Cannula 06/07 0657 83 18 111/67 06/07 0657 83 18 111/67 95 Nasal 2.0L Cannula 06/07 0603 97.5 83 18 126/65 95 Nasal 2.0L Cannula 06/07 0415 97 Nasal 2.0L Cannula 06/07 0406 97.2 88 18 123/81 94 Room Air
[2016-06-07 09:55] VITALS: BP 118/64
--- NOTE | 2016-06-07 11:39 | PN- Cardiology ---
Subjective Subjective: This patient was seen by me in the emergency department yesterday. He presented with epigastric pain, eructation and other abdominal complaints. He was found to be in atrial fibrillation with a normal heart rate but a lot of ST and T-wave abnormalities. An echocardiogram was done in the emergency department and documented apical wall motion abnormality. He had a positive troponin of about 3. I thought he had a recent myocardial infarction by history. He was recommended admission but refused and signed out AGAINST MEDICAL ADVICE. The patient returns today complaining of chest and epigastric pain and continued eructation. On presentation he is actually in sinus rhythm today but still has a lot of diffuse ST depression. He is not having any active chest pain. He has been placed on IV heparin. His troponin has decreased to 1.46, consistent with a recent myocardial infarction. He has been started on metoprolol, aspirin, atorvastatin, lisinopril, Plavix. Objective Vital Signs and I&Os Vital Signs Date Time Temp Pulse Resp B/P B/P Pulse O2 O2 Flow FiO2 Mean Ox Delivery Rate 06/07 1032 95 Nasal 2.0L Cannula 06/07 0955 97.7 91 20 118/64 97 Nasal 2.0L Cannula 06/07 0830 97.8 85 16 108/66 95 Nasal 2.0L Cannula 06/07 0657 83 18 111/67 06/07 0657 83 18 111/67 95 Nasal 2.0L Cannula 06/07 0603 97.5 83 18 126/65 95 Nasal 2.0L Cannula 06/07 0415 97 Nasal 2.0L Cannula 06/07 0406 97.2 88 18 123/81 94 Room Air Intake & Output 06/07 1600 06/07 0800 06/07 0000 06/06 1600 06/06 0800 06/06 0000 Intake Total 0 Output Total Balance 0 Intake, Oral 0 Patient 222 lb 222 lb Weight Weight Reported by Patient Reported by Patient Measurement Method Physical Exam: He is in no distress HEENT exam is normal Neck veins not distended Carotids normal Chest is clear Heart reveals a regular rhythm with some extrasystoles and no murmurs Extremities reveal no edema Current Medications: Current Medications Sig/Shantal Start time Last Medication Dose Route Stop Time Status Admin Acetaminophen 650 MG Q6P PRN 06/07 0815 AC PO Allopurinol 100 MG DAILY 06/07 1000 AC PO Amlodipine Besylate 10 MG DAILY 06/07 1000 AC PO Aspirin 325 MG DAILY 06/08 1000 AC PO Aspirin 0 .STK-MED ONE 06/07 0654 DC PO Aspirin 81 MG ONCE ONE 06/07 0645 DC 06/07 PO 06/07 0646 0657 Atorvastatin Calcium 40 MG 1700 06/07 1700 AC PO Clopidogrel Bisulfate 75 MG DAILY 06/07 1000 AC PO Furosemide 20 MG DAILY 06/07 1000 AC PO Heparin Sodium 25,000 UNIT Q24H 06/07 0845 AC 06/07 (Porcine) IV 0855 Sodium Chloride 500 ML Insulin Aspart 0 TIDAC 06/07 1200 AC SC Lisinopril 40 MG DAILY 06/07 1000 AC PO Metoprolol Tartrate 12.5 MG BID 06/07 2200 CAN PO Metoprolol Tartrate 25 MG BID 06/07 2200 AC PO Metoprolol Tartrate 0 .STK-MED ONE 06/07 0654 DC PO Metoprolol Tartrate 12.5 MG ONCE ONE 06/07 0645 DC 06/07 PO 06/07 0646 0657 Multivitamins 1 TAB DAILY 06/07 1000 AC PO Nitroglycerin 0.4 MG ONCE ONE 06/07 0830 DC 06/07 SL 06/07 0831 0825 Omeprazole 20 MG DAILY AC 06/07 1000 AC PO Oxycodone/ 1 TAB Q6P PRN 06/07 0815 AC Acetaminophen PO Oxycodone/ 2 TAB Q6P PRN 06/07 0815 AC Acetaminophen PO Sodium Chloride 1,000 ML .[id number] 06/07 0815 AC 06/07 IV 0825 Results Last 48 Hrs of Labs/Mics: Laboratory Tests 06/07/16 0857: APTT Cancelled 06/07/16 0524: Anion Gap 12, Estimated GFR > 60, BUN/Creatinine Ratio 13.0, Glucose 161 H, Calcium 10.0, Magnesium 1.5 L, Troponin I 1.46 *H 06/07/16 0440: CBC w Diff NO MAN DIFF REQ, RBC 4.49 L, MCV 93.8, MCH 31.0, RDW 14.3, MPV 7.9, Gran % 76.7 H, Lymphocytes % 11.8 L, Monocytes % 8.9, Eosinophils % 2.1, Basophils % 0.5, Absolute Granulocytes 8.4 H, Absolute Lymphocytes 1.3, Absolute Monocytes 1.0 H, Absolute Eosinophils 0.2, Absolute Basophils 0.1, PUBS MCHC 33.0 Recent Imaging Studies: PATIENT: TRENA WHIPPLE PRESENT AGE: 81 PATIENT ACCOUNT NO: [id number] : 36 LOCATION: [facility] ORDERING PHYSICIAN: GLENN TYSON PA-C SERVICE DATE: 06/06/16-0043 EXAM TYPE: RAD - XRY-PORTABLE CHEST XRAY EXAMINATION: XR PORTABLE CHEST CLINICAL INFORMATION: Atrial fibrillation. COMPARISON: None TECHNIQUE: Portable AP view of the chest was obtained. FINDINGS: Cardiac leads overlie the chest. Low lung volumes. No dense consolidation, edema, or effusion. No pneumothorax. The cardiomediastinal silhouette is normal in size with a calcified aorta. Degenerative changes are seen at both shoulders. IMPRESSION: No acute pulmonary findings. DICTATED BY: LELA WINN MD DATE/TIME DICTATED:06/06/161347 FOOD SERVICE COORDINATOR:JENNIFER DATE/TIME TRANSCRIBED:06/06/161347 CONFIDENTIAL, DO NOT COPY WITHOUT APPROPRIATE AUTHORIZATION. <Electronically signed in Other Vendor System> SIGNED BY: LELA WINN MD 06/06 5018 Assessment/Plan Assessment/Plan The patient presents with a few days history of eructation and abdominal discomfort. He was seen in the emergency room yesterday with a troponin of about 3 and an abnormal echocardiogram consistent with wall motion abnormalities. He signed out AMA but returned today. He is actually in sinus rhythm with PACs and PVCs on the monitor. He has been started on appropriate anti-ischemic regimen. I recommend trending his EKGs and enzymes. I think this patient should be transferred for cardiac catheterization and I'll try and arrange this for either later today or tomorrow. Continue telemetry? Yes
[2016-06-07] MEDS ORDERED: CLOPIDOGREL75 M1 PO (13:48)
[2016-06-07] MEDS ORDERED: HEPARIN-1/25000 UNI1 IV (13:52)
--- NOTE | 2016-06-07 13:55 | Patient Discharge Instructions ---
Discharge Instructions General Discharge Information You were seen/treated for: -TN Special Instructions: -Follow up with your material specialist in 1 week after discharge -Follow up with your PCP in 1 week after discharge Activity Full Activity/No Limits: Yes (As tolerated) Acute Coronary Syndrome Inclusion Criteria At DC or during hospital stay patient has or had the following: ACS DIAGNOSIS Yes Discharge Core Measures Meds if any: Prescribed or Continued at Discharge Meds if any: NOT Prescribed or Continued at Discharge Congestive Heart Failure Inclusion Criteria At DC or during hospital stay patient has or had the following: CHF DIAGNOSIS No Discharge Core Measures Meds if any: Prescribed or Continued at Discharge Meds if any: NOT Prescribed or Continued at Discharge Cerebrovascular accident Inclusion Criteria At DC or during hospital stay patient has or had the following: CVA/TIA Diagnosis No Discharge Core Measures Meds if any: Prescribed or Continued at Discharge Meds if any: NOT Prescribed or Continued at Discharge Venous thromboembolism Inclusion Criteria VTE Diagnosis No VTE Type NONE VTE Confirmed by (Test) NONE Discharge Core Measures - Per Current guidelines, there needs to be overlap - treatment for the first 5 days of Warfarin therapy. - If discharged on Warfarin prior to 5 days of - overlap therapy, the patient will need to be - assessed for post discharge needs including - *Post discharge parental anticoagulation - *Warfarin and/or parental anticoagulation education - *Follow up date to check INR post discharge At least 5 days overlap therapy as Inpatient No Meds if any: Prescribed or Continued at Discharge Note: Overlap Therapy is Warfarin and Anticoagulant Meds if any: NOT Prescribed or Continued at Discharge
--- NOTE | 2016-06-07 14:19 | Discharge Summary ---
See Addendum Visit Information Visit Dates Admission Date: 06/07/16 Discharge Date: 06/07/2016 Hospital Course Course Attending Physician: ALYSIA VALLES MD Primary Care Physician: ALYSIA VALLES MD Consulting Request: Consulting Specialty: Cardiology Consulting Physician: Rusty Wilkerson [facility] Course: is an 81 yo man with PMHx. significant for HTN, DM, HLD, OA, Rt. Carotid endarterctomy about 10 years ago presented to ED with a c/o of chest pressure. He presented with epigastric pain, eructation and other abdominal complaints. He was found to be in atrial fibrillation with a normal heart rate but a lot of ST and T-wave abnormalities. An echocardiogram was done in the emergency department and documented apical wall motion abnormality. He had a positive troponin of about 3. We thought he had a recent myocardial infarction by history. He was recommended admission but refused and signed out AGAINST MEDICAL ADVICE. The patient returns today complaining of chest and epigastric pain and continued eructation. On presentation he is actually in sinus rhythm today but still has a lot of diffuse ST depression. He is not having any active chest pain. He has been placed on IV heparin. His troponin has decreased to 1.46, consistent with a recent myocardial infarction. He has been started on metoprolol, aspirin, atorvastatin, lisinopril, Plavix and heparin. recommend trending his EKGs and enzymes. I think this patient should be transferred for cardiac catheterization and I'll try and arrange this for either later today or tomorrow. Troponin at 12:35 trend down to: 1.28. He is going to be transferred to [facility], accepted physician is for cardiac catheterization. Complications: Non Allergies: Coded Allergies: Penicillins (RASH 06/06/16) Sulfa (Sulfonamide Antibiotics) (RASH 06/06/16) Disposition Summary Disposition Principal Diagnosis: #ACS: #New onset A.fib #Hx. of diabetes, HTN, HLD #Hx. of right carotid stenosis s/p enarterecotmy Additional Diagnosis: As above Discharge Disposition: other general hospital Discharge Instructions General Discharge Information Code Status: Full Code Patient's Diet: Heart healthy/ diabetic diet Patient's Activity: As tolerated Follow-Up Instructions/Appts: Follow up with martial arts instructor Medications at Discharge Discharge Medications: Continue taking these medications: Omeprazole (Omeprazole) 20 MG CAPSULE.DR 1 Capsule ORAL DAILY Allopurinol (Allopurinol) 100 MG TABLET 1 Tablet ORAL DAILY Metformin HCl (Metformin HCl) 1,000 MG TABLET 1 Tablet ORAL TWICE DAILY Amlodipine Besylate (Amlodipine Besylate) 10 MG TABLET 1 Tablet ORAL DAILY Glimepiride (Glimepiride) 2 MG TABLET 1 Tablet ORAL DAILY Lisinopril (Lisinopril) 40 MG TABLET 1 Tablet ORAL DAILY Furosemide (Furosemide) 20 MG TABLET 1 Tablet ORAL DAILY Atorvastatin Calcium (Atorvastatin Calcium) 80 MG TABLET 0.5 Tablet ORAL DAILY Metoprolol Tartrate (Metoprolol Tartrate) 25 MG TABLET 1 Tablet ORAL TWICE DAILY Start taking the following new medications: Clopidogrel Bisulfate (Clopidogrel) 75 MG TABLET 1 Tablet ORAL DAILY Qty = 30 No Refills Heparin (Heparin-1/2NS 25,000 Units/500) 25,000 UNIT/500 ML (50 UNIT/ML) IV.SOLN 25,000 Units INTRAVEN EVERY 24 HOURS Qty = 1 No Refills Copies To: RUSTY PORTER,IVELISSE Espinoza; ALBARO PORTER,[facility]
[2016-06-07 15:57] VITALS: BP 110/70
[2016-06-07 17:58] LABS: PTT 38 SEC (25-37)
== END 2016-06-07 17:05 | disposition short-term general hospital (02) | DRG 282 ==
LOC: ERH 03:56 → 1NO 06:26 → ERHI 06:26 → 1NO 06:26 → ENRESERV 08:45 → 1NO 09:34
PROVIDERS: Emergency Medicine; ADMIT Internal Medicine
DX: I21.4 Non-ST elevation (NSTEMI) myocardial infarction (principal); E11.9 Type 2 diabetes mellitus without complications; I48.91 Unspecified atrial fibrillation; I10 Essential (primary) hypertension; K21.9 Gastro-esophageal reflux disease without esophagitis; Z86.73 Personal history of transient ischemic attack (TIA), and cerebral infarction without residual deficits; Z79.84 Long term (current) use of oral hypoglycemic drugs; Z87.891 Personal history of nicotine dependence
CPT/HCPCS: 1NP; 36415; 93005; 93010; 96374; J1644; J3490